=== PATIENT | male | born 1970 | race American Indian/Alaskan Native ===

== ENCOUNTER 2019-01-04 07:39 | Day surgery (SDC) | payer MEDICARE ==
[~2019-01-04 07:39] MED LIST: ANCEF/NS 1 GM/50 ML 1 GM/50 ML BAG IV NR; HEPARIN 10,000 UNITS/10 ML ONE; MARCAINE 0.5% INFILTRATI ONE; NACL 0.9% 250ML 250 ML ONE; NACL 0.9% 500 ML 0 ML ONE; NEOSPORIN GU IR ONE
[2019-01-04] MEDS ORDERED: XYLOCAINE 1% 20 mL ONE (11:17)
[2019-01-04] MEDS ORDERED: SUBLIMAZE IV PRN (11:54)
[2019-01-04] MEDS ORDERED: NACL 0.9% 1000 ML 1,000 ML IV SCH (12:00)
--- NOTE | 2019-01-04 12:00 | Anesthesia Day of Surgery ---
Anesthesia Day of Surgery - Day of Surgery Patient Examined: Yes Patient H&P Reviewed: Yes Patient is NPO: Yes Beta Blockers: Yes Cardiac Clearance: Yes
--- NOTE | 2019-01-04 12:05 | Anesthesia Consultation ---
Anesthesia Consult and Med Hx Date of service: 01/04/19 - Airway Anesthetic Teeth Evaluation: Chipped ROM Head & Neck: Adequate Mental/Hyoid Distance: Adequate Mallampati Class: Class II Intubation Access Assessment: Good - Pre-Operative Health Status ASA Pre-Surgery Classification: ASA4 Proposed Anesthetic Plan: General - Pulmonary Hx Smoking: No Hx Sleep Apnea: No (HIGH ON PRESCREEN) - Cardiovascular System Hx Hypertension: Yes Hx Coronary Artery Disease: Yes (Recent stents and angioplasty ) Hx Heart Attack/AMI: No Hx Angina: Yes Hx Percutaneous Transluminal Coronary Angioplasty (PTCA): Yes (. States can climb two flights of stairs) - Central Nervous System Hx Back Pain: Yes Hx Psychiatric Problems: Yes - Endocrine Hx Renal Disease: Yes (Last HD Thursday) Hx End Stage Renal Disease: Yes (DIALYSIS TUE,THUR, SAT. VASCATH RT SIDE CHEST) Hx Insulin Dependent Diabetes: Yes - Hematic Hx Anemia: No Hx Sickle Cell Disease: No - Other Systems Hx Alcohol Use: No Hx Substance Use: No Hx Cancer: No
[2019-01-04] MEDS ORDERED: COREG PO NR (12:10)
[2019-01-04] MEDS ORDERED: NEURONTIN PO NR (12:11)
[2019-01-04] MEDS ORDERED: PHENYLEPHRINE/NS Syringe 1,000 MCG/10 ML IV ONE (12:30)
[2019-01-04] MEDS ORDERED: VERSED IV NR (13:00)
[2019-01-04] MEDS ORDERED: ZOFRAN IV PRN (13:00)
[2019-01-04] MEDS ORDERED: ANCEF/STERILE WATER 2 GM/20 ML 2 GM/20 ML SYRINGE IV NR (13:00)
[2019-01-04] MEDS ORDERED: NORVASC PO SCH (13:00)
[2019-01-04] MEDS ORDERED: XYLOCAINE MPF 2% ONE (13:26)
[2019-01-04] MEDS ORDERED: ZOFRAN ONE (13:26)
[2019-01-04] MEDS ORDERED: DECADRON ONE (13:26)
[2019-01-04] MEDS ORDERED: DIPRIVAN 10 MG/ML IV ONE (13:26)
[2019-01-04] MEDS ORDERED: SUBLIMAZE ONE (13:26)
[2019-01-04] MEDS ORDERED: MARCAINE 0.5% INFILTRATI ONE (13:42)
[2019-01-04] MEDS ORDERED: NACL 0.9% 500 ML 500 ML ONE (13:43)
[2019-01-04] MEDS ORDERED: XYLOCAINE 1%/ EPI 1:100,000 INFILTRATI ONE (13:43)
[2019-01-04] MEDS ORDERED: HEPARIN 10,000 UNITS/10 ML ONE (13:43)
--- NOTE | 2019-01-04 16:50 | Short Stay Summary ---
Short Stay Documentation Date of service: 01/04/19 Narrative H&P: See H&P - History H&P: obtained from office - Allergies and Medications Current Medications: Allergies No Known Allergies Allergy (Unverified 12/31/18 11:06) Home Medications Medication Instructions Recorded Confirmed Last Taken Type Ambien 5 mg PO DAILY 12/31/18 01/04/19 01/03/19 History Aspirin 81 mg PO DAILY 12/31/18 01/04/19 01/03/19 History Brilinta 90 mg PO BID 12/31/18 01/04/19 01/02/19 History Carvedilol 6.25 mg PO DAILY 12/31/18 01/04/19 01/03/19 History Furosemide 40 mg PO DAILY 12/31/18 01/04/19 01/03/19 History Gabapentin 600 mg PO DAILY 12/31/18 01/04/19 01/03/19 History Lantus Solostar 3 ml SUB-Q 12/31/18 01/03/19 History Lipitor 40 mg PO DAILY 12/31/18 01/04/19 01/03/19 History Lisinopril 20 mg PO DAILY 12/31/18 01/04/19 01/03/19 History amLODIPine 10 mg PO DAILY 12/31/18 01/04/19 01/03/19 History traZODone 50 mg PO DAILY 12/31/18 01/04/19 01/03/19 History HYDROcodone/APAP 10-325 [[place] 10 mg PO Q4-6H PRN 01/04/19 01/04/19 01/04/19 History 10-325 mg TAB] Active Medications Amlodipine Besylate (Norvasc) 10 mg PO QDAY [facility] Last Admin: 01/04/19 12:43 Dose: 10 mg Documented by: Fentanyl (Sublimaze) 50 mcg IV Q5MIN PRN PRN Reason: Pain , Severe (7-10) Stop: 01/04/19 20:00 Sodium Chloride (Nacl 0.9% 1000 Ml) 1,000 mls @ 42 mls/hr IV DIRECT GUILHERME Last Admin: 01/04/19 12:29 Dose: 42 mls/hr Documented by: Midazolam HCl (Versed) 2 mg IV PREOP NR Stop: 01/04/19 23:59 Last Admin: 08/20/19 12:31 Dose: 2 mg Documented by: Ondansetron HCl (Zofran) 4 mg IV ONCE PRN PRN Reason: Nausea And Vomiting - Brief post op/procedure progress note Date of procedure: 01/04/19 Pre-op diagnosis: End-Stage Renal Disease Post-op diagnosis: same Procedure: Creation of Left Brachiocephalic Arteriovenous Fistula Anesthesia: local, other (LMA) Surgeon: SURINDER ATKINS Estimated blood loss: minimal Pathology: none Condition: stable - Disposition Condition at discharge: Good Disposition: DC-01 TO HOME OR SELFCARE Short Stay Discharge Plan Activity: other (no heavy lifting with left arm) Wound: open to air, keep clean and dry, other (okay to wash the wound with soap and water but do not soak in water) Follow up with: SURINDER ATKINS MD [Staff Physician] - 14 Days Prescriptions: HYDROcodone/APAP 7.5-325 [[place] 7.5/325] 1 each PO Q6HR PRN #40 tablet PRN Reason: Pain
--- NOTE | 2019-01-04 16:54 | Operative Report ---
Operative Report Operative Report: Date of procedure: 01/04/2019 Pre-operative diagnosis: End-Stage Renal Disease Post-operative diagnosis: End-Stage Renal Disease Procedure(s): Creation of Left Brachial Artery to Cephalic Vein Arteriovenous Fistula Surgeon: Will Ma MD Fishing Boat Captain: None Anesthesia: Local/LMA EBL: Minimal Counts: Correct Complications: None Condition: Stable Findings: Successful creation of left brachiocephalic arteriovenous fistula palpable thrill at the completion of the case. Specimen: None Indications: The patient is a 48-year-old male with a history of end-stage renal disease who is on hemodialysis through a right internal jugular permacath. He is in need of long-term dialysis access and was found to be a suitable candidate for creation of a left arm arteriovenous fistula. He was given the risks, benefits, and alternative procedures and consented to procedure. Description of Procedure: The patient was brought to the operating room and laid in supine position after general endotracheal anesthesia was administered the patient was prepped and draped in normal sterile fashion. After anesthetizing the skin a transverse incision was created just below the antecubital crease. Dissection was carried down to the the cephalic vein using sharp dissection. The vein was dissected out both proximally and distally and suture ligated and divided distally. I then ran a 3 Darvin proximally in the vein, to ensure patency of the vein. Then flushed the vein with heparinized saline and flow was controlled with a bulldog clamp. I then dissected out the brachial artery through this incision circumferentially both proximal and distal and controlled the artery with vessel loops. I then placed the vessel loops on tension controlling the flow through the artery and created an arteriotomy using an 11 blade and Davis scissors. I created an end to side anastomosis between the cephalic vein and brachial artery using a 6-0 Prolene in running fashion. Prior to completing the anastomosis I flushed the artery both proximally and distally and then advanced a 3 Darvin proximally to break the spasm in the artery. I then completed the anastomosis and removed all vessel loops allowing flow into the fistula which had an excellent thrill. I achieved hemostasis with a combination of direct pressure and electrocautery. Once hemostasis was achieved I anesthetized the wound with Marcaine. I then closed the wound in 2 layers with a 3-0 Vicryl in a running fashion to close the deep dermal layer and 4-0 Monocryl in a running fashion in the subcuticular layer. I dressed the wound with Dermabond. The patient tolerated the procedure well, all sponge needle and instrument counts were correct. The patient was taken to recovery in stable condition.
[2019-01-04 17:33] VITALS: BP 103/67
--- NOTE | 2019-01-04 20:05 | Post Anesthesia Evaluation ---
- Post Anesthesia Evaluation Patient Participated: Yes Airway Patent: Yes Stable Respiratory Function: Yes Nausea/Vomiting: No Temp > 96.8F: Yes Pain Manageable: Yes Adequeate Hydration: Yes Anesthesia Complications: No Block Receding Appropriately: Not Applicable Patient on Ventilator: No
== END 2019-01-04 07:40 | disposition home or self-care (01) ==
LOC: OR 07:39
PROVIDERS: ATTEND Surgery Vascular Surgery
DX: I12.0 Hypertensive chronic kidney disease with stage 5 chronic kidney disease or end stage renal disease (principal); E11.22 Type 2 diabetes mellitus with diabetic chronic kidney disease; N18.6 End stage renal disease; I25.118 Atherosclerotic heart disease of native coronary artery with other forms of angina pectoris; K21.9 Gastro-esophageal reflux disease without esophagitis; E78.00 Pure hypercholesterolemia, unspecified; F32.9 Major depressive disorder, single episode, unspecified; Z79.899 Other long term (current) drug therapy; Z95.5 Presence of coronary angioplasty implant and graft; Z79.82 Long term (current) use of aspirin; Z98.890 Other specified postprocedural states
CPT/HCPCS: 36821; 82803; 82962; A9270; J0690; J1100; J1644; J2250; J2405; J2704; J3010; J7030; J7040; J7050; J2370